=== PATIENT | female | born 1995 | race Caucasian/White ===

== ENCOUNTER 2023-06-05 08:44 | Emergency (ER) | payer BC, MEDICAID ==
[2023-06-05 09:25] LABS: BASOPHILS ABSOLUTE AUTO 0.04 K/uL (0.00-0.10); BASOPHILS PERCENT AUTO 0.7 % (0.1-1.3); EOSINOPHILS ABSOLUTE AUTO 0.14 K/uL (0.00-0.40); EOSINOPHILS PERCENT AUTO 2.4 % (0.0-5.4); HEMATOCRIT 41.3 % (34.3-46.0); HEMOGLOBIN 13.8 g/dL (11.2-15.5); IMMATURE GRAN PERCENT AUTO 0.2 % (0.0-0.7); LYMPHOCYTES ABSOLUTE AUTO 1.57 K/uL (0.8-3.3); LYMPHOCYTES PERCENT AUTO 26.7 % (11.4-47.7); MEAN CORPUSCULAR HEMOGLOBIN 29.3 pg (31.6-35.5); MEAN CORPUSCULAR HGB CONC 33.4 g/dL (31.6-35.5); MEAN CORPUSCULAR VOLUME 87.7 fL (81.4-99.0); MONOCYTES ABSOLUTE AUTO 0.39 K/uL (0.20-0.90); MONOCYTES PERCENT AUTO 6.6 % (3.3-12.6); NEUTROPHILS ABSOLUTE AUTO 3.72 K/uL (1.0-7.6); NEUTROPHILS PERCENT AUTO 63.4 % (40.0-78.1); PLATELET COUNT,PLT 356 K/uL (130-375); RED BLOOD CELL COUNT 4.71 M/uL (3.77-5.24); WHITE BLOOD CELL COUNT,WBC 5.9 K/uL (3.2-11.0)
[2023-06-05 09:29] LABS: APPEARANCE,URINE CLEAR (CLEAR); BILIRUBIN,URINE NEGATIVE (NEGATIVE); COLOR,URINE YELLOW (YELLOW); GLUCOSE,URINE NEGATIVE (NEGATIVE); KETONES,URINE NEGATIVE (NEGATIVE); LEUKOCYTE ESTERASE,URINE NEGATIVE (NEGATIVE); NITRITE,URINE NEGATIVE (NEGATIVE); OCCULT BLOOD,URINE NEGATIVE (NEGATIVE); PH,URINE 5.5 (5.0-8.0); PROTEIN,URINE NEGATIVE (NEGATIVE); UROBILINOGEN,URINE 0.2 EU/dL (0.2-1.0)
[2023-06-05 09:29] LABS: IMMATURE GRAN ABSOLUTE AUTO 0.01 K/uL (0.00-0.23)
[2023-06-05 09:35] LABS: EPITHELIAL CELLS,URINE RARE; RBC,URINE 0-5 (0-5); WBC,URINE 0-5 (0-5)
[2023-06-05 09:36] LABS: AMORPHOUS SEDIMENT,URINE NOT SEEN; BACTERIA,URINE NOT SEEN; MUCUS,URINE NOT SEEN
[2023-06-05 09:46] LABS: A/G RATIO 0.8 (1.2-2.2); ALANINE AMINOTRANSFERASE,ALT 384 U/L (12-78); ALBUMIN 3.4 g/dL (3.4-5.0); ALKALINE PHOSPHATASE 86 U/L (46-116); ANION GAP 10.3 mmol/L (5.0-14.0); ASPARTATE AMNIOTRANSFERASE,AST 269 U/L (15-37); BILIRUBIN TOTAL 0.4 mg/dL (0.2-1.0); BLOOD UREA NITROGEN,BUN 12 mg/dL (7-18); CALCIUM 8.3 mg/dL (8.5-10.1); CARBON DIOXIDE,CO2 27 mmol/L (21-32); CHLORIDE,CL 105 mmol/L (100-108); CREATININE 0.7 mg/dL (0.6-1.0); EST CRCL DRUG DOSING (CG) 94.63 mL/min; ESTIMATED GFR 121 mL/min (>60); GLUCOSE RANDOM 85 mg/dL (74-106); POTASSIUM,K 4.1 mmol/L (3.6-5.2); PROTEIN TOTAL,TP 7.7 g/dL (6.4-8.2); SODIUM,NA 142 mmol/L (140-148)
== END 2023-06-05 13:05 | disposition home or self-care (01) ==
LOC: JP.ED 08:44
DX: K80.20 Calculus of gallbladder without cholecystitis without obstruction (principal); Z88.2 Allergy status to sulfonamides
CPT/HCPCS: 36415; 76705; 76705-26; 80053; 81001; 81025; 83690; 85025; 99284

== ENCOUNTER 2023-06-08 06:44 | Day surgery (SDC) | payer BC, MEDICAID ==
[2023-06-08] MEDS ORDERED: Propofol 200 MG/20 ML SDV ONE (06:56)
[2023-06-08] MEDS ORDERED: Ondansetron 4 MG/2 ML SDV ONE (06:56)
[2023-06-08] MEDS ORDERED: Dexamethasone 4 MG/ML SDV ONE (06:56)
[2023-06-08] MEDS ORDERED: Glycopyrrolate 0.2 MG/ML 5 ML MDV ONE (06:56)
[2023-06-08] MEDS ORDERED: Neostigmine Methylsulfate 1 MG/ML 5 ML Syringe ONE (06:56)
[2023-06-08] MEDS ORDERED: fentaNYL 250 MCG/5 ML SDV ONE (06:56)
[2023-06-08] MEDS ORDERED: Rocuronium 50 MG/5 ML Vial ONE (06:56)
[2023-06-08] MEDS ORDERED: Bupivacaine 0.5% 50 ML MDV ONE (07:18)
[2023-06-08] MEDS ORDERED: Lidocaine 1% with EPINEPHrine 1:100,000 50 ML MDV ONE (07:19)
[2023-06-08] MEDS ORDERED: Indocyanine Green 25 MG SDV INJECT ONE (07:30)
[2023-06-08] MEDS ORDERED: Sodium Chloride 0.9% 1,000 ML IV SCH (07:30)
[2023-06-08] MEDS ORDERED: ceFAZolin 2 GM in Premix Bag 1 BAG IV ONE (08:30)
[2023-06-08] MEDS ORDERED: metroNIDAZOLE/Normal Saline 500 MG in Premix Bag 1 BAG IV ONE (08:30)
[2023-06-08] MEDS ORDERED: Ropivacaine 30 ML, dexAMETHasone 8 MG, EPINEPHrine 0.4 MG, Sodium Chloride 0.9% 47.6 ML NERVRT SCH ×4 (08:30)
[2023-06-08] MEDS ORDERED: Zolpidem 5 MG Tab PO PRN (09:10)
[2023-06-08] MEDS ORDERED: Docusate Sodium 100 MG Cap PO PRN (09:10)
[2023-06-08] MEDS ORDERED: fentaNYL 100 MCG/2 ML SDV IVPUSH PRN ×3 (09:10)
[2023-06-08] MEDS ORDERED: hydrOXYzine HCL 100 MG/2 ML SDV IM PRN (09:10)
[2023-06-08] MEDS ORDERED: Ondansetron 4 MG/2 ML SDV IVPUSH PRN (09:10)
[2023-06-08] MEDS ORDERED: Benzocaine/Cetylpyridinium/Menthol Lozenge MUCMEM PRN (09:10)
[2023-06-08] MEDS ORDERED: Acetaminophen/HYDROcodone 325-5 MG Tab PO PRN (09:10)
[2023-06-08] MEDS ORDERED: Scopolamine 1.5 MG Transdermal Patch TOP SCH (09:30)
[2023-06-08] MEDS ORDERED: Atropine 0.4 MG/ML SDV ONE (09:35)
[2023-06-08] MEDS ORDERED: fentaNYL 100 MCG/2 ML SDV ONE ×2 (09:52→09:59)
[2023-06-08] MEDS ORDERED: Lactated Ringers 1,000 ML ONE (10:10)
== END 2023-06-08 14:55 | disposition home or self-care (01) ==
LOC: UNDOADMIN 06:44 → JP.SDSSCHI 06:44 → JP.SDS 06:44 → EDSTATUS 08:30 → UNDODISIN 14:55 → JP.SDS 14:55
PROVIDERS: ATTEND Surgery
DX: K80.10 Calculus of gallbladder with chronic cholecystitis without obstruction (principal); G43.909 Migraine, unspecified, not intractable, without status migrainosus; F41.9 Anxiety disorder, unspecified; F32.A Depression, unspecified; Z88.2 Allergy status to sulfonamides; Z79.2 Long term (current) use of antibiotics
CPT/HCPCS: 47563; 81025; A9270; J0171; J0461; J0690; J1100; J2405; J2704; J2710; J2795; J3010; J3410; J3490; J7030; J7120; 88304

== ENCOUNTER 2024-09-13 14:07 | Emergency (ER) | payer BC, MEDICAID ==
[2024-09-13 15:19] LABS: APPEARANCE,URINE CLEAR (CLEAR); BILIRUBIN,URINE NEGATIVE (NEGATIVE); COLOR,URINE YELLOW (YELLOW); GLUCOSE,URINE NEGATIVE (NEGATIVE); KETONES,URINE NEGATIVE (NEGATIVE); LEUKOCYTE ESTERASE,URINE NEGATIVE (NEGATIVE); NITRITE,URINE NEGATIVE (NEGATIVE); OCCULT BLOOD,URINE NEGATIVE (NEGATIVE); PROTEIN,URINE NEGATIVE (NEGATIVE); UROBILINOGEN,URINE 0.2 EU/dL (0.2-1.0)
[2024-09-13 15:23] LABS: BASOPHILS ABSOLUTE AUTO 0.04 K/uL (0.00-0.10); BASOPHILS PERCENT AUTO 0.3 % (0.1-1.3); EOSINOPHILS ABSOLUTE AUTO 0.14 K/uL (0.00-0.40); EOSINOPHILS PERCENT AUTO 1.2 % (0.0-5.4); HEMATOCRIT 34.6 % (34.3-46.0); HEMOGLOBIN 11.9 g/dL (11.2-15.5); IMMATURE GRAN ABSOLUTE AUTO 0.07 K/uL (0.00-0.23); IMMATURE GRAN PERCENT AUTO 0.6 % (0.0-0.7); LYMPHOCYTES ABSOLUTE AUTO 1.19 K/uL (0.8-3.3); LYMPHOCYTES PERCENT AUTO 10.3 % (11.4-47.7); MEAN CORPUSCULAR HEMOGLOBIN 30.1 pg (31.6-35.5); MEAN CORPUSCULAR HGB CONC 34.4 g/dL (31.6-35.5); MEAN CORPUSCULAR VOLUME 87.4 fL (81.4-99.0); MONOCYTES ABSOLUTE AUTO 0.73 K/uL (0.20-0.90); MONOCYTES PERCENT AUTO 6.3 % (3.3-12.6); NEUTROPHILS ABSOLUTE AUTO 9.35 K/uL (1.0-7.6); NEUTROPHILS PERCENT AUTO 81.3 % (40.0-78.1); PLATELET COUNT,PLT 225 K/uL (130-375); RED BLOOD CELL COUNT 3.96 M/uL (3.77-5.24); WHITE BLOOD CELL COUNT,WBC 11.5 K/uL (3.2-11.0)
[2024-09-13 15:24] LABS: AMORPHOUS SEDIMENT,URINE FEW; BACTERIA,URINE FEW; EPITHELIAL CELLS,URINE NOT SEEN; MUCUS,URINE NOT SEEN; RBC,URINE 0-5 (0-5); WBC,URINE 0-5 (0-5)
[2024-09-13 15:46] LABS: BLOOD UREA NITROGEN,BUN 8 mg/dL (7-18); CALCIUM 8.5 mg/dL (8.5-10.1); CARBON DIOXIDE,CO2 24 mmol/L (21-32); CHLORIDE,CL 100 mmol/L (100-108); CREATININE 0.6 mg/dL (0.6-1.0); EST CRCL DRUG DOSING (CG) 109.42 mL/min; ESTIMATED GFR 125 mL/min (>60); GLUCOSE RANDOM 86 mg/dL (74-106); POTASSIUM,K 3.5 mmol/L (3.6-5.2); SODIUM,NA 135 mmol/L (140-148)
[2024-09-13 15:48] LABS: ANION GAP 14.5 mmol/L (5.0-14.0); TROPONIN I HIGH SENSITIVITY < 4.0 pg/mL (<=60.3)
== END 2024-09-13 16:51 | disposition home or self-care (01) ==
LOC: JP.ED 14:07
DX: O99.413 Diseases of the circulatory system complicating pregnancy, third trimester (principal); I49.1 Atrial premature depolarization; Z88.2 Allergy status to sulfonamides; Z79.899 Other long term (current) drug therapy; Z3A.36 36 weeks gestation of pregnancy
CPT/HCPCS: 36415; 80048; 81001; 84484; 85025; 93005; 93010; 99284; 99285